=== PATIENT | female | born 1975 | race Caucasian/White ===

== ENCOUNTER 2024-02-12 08:58 | Inpatient (IN) | payer BC ==
[2024-02-12] MEDS ORDERED: ONDANSETRON 4 MG/2 ML VIAL ONE ×2 (09:54→16:20)
[2024-02-12] MEDS ORDERED: MORPHINE 4 MG/ML SYR ONE ×3 (09:54→16:20)
[2024-02-12] MEDS ORDERED: NA CHLORIDE 0.9% 2,000 ML ONE (09:55)
--- NOTE | 2024-02-12 10:07 | RAD REPORT ---
EXAM DESCRIPTION: RAD -Hand Left 3 View - 02/12/2024 9:55 am CLINICAL HISTORY: Left hand pain status post injury FINDINGS: No fracture or dislocation is seen.
[2024-02-12 10:21] LABS: Specific Gravity 1.026 (1.005-1.030); Urine Bilirubin NEGATIVE (Negative); Urine Blood 3+ (OVER) (Negative); Urine Clarity Extremely Turbid (Clear); Urine Color Orange (Yellow); Urine Glucose TRACE (Negative); Urine Ketones TRACE (Negative); Urine Nitrite NEGATIVE (Negative); Urine Protein 3+ (Negative); Urine Urobilinogen Normal (Normal); Urine pH 5.5 (5.0-7.0)
[2024-02-12 10:23] LABS: Sqamous Epithelial <5 /HPF (None Seen); Urine Bacteria >50 /HPF (<20); Urine Culture Reflex Order REFLEXED; Urine Microscopic Reflex YN ORDER UMIC; Urine Mucus 4+ /HPF (None Seen); Urine RBC >50 /HPF (None Seen); Urine WBC >50 /HPF (<5); Urine WBC Clump Many /HPF (None Seen); Urine Yeast (Budding) Few /HPF (None Seen)
[2024-02-12 11:11] LABS: Absolute Basophils 0.1 K/uL (0-0.5); Absolute Lymphocytes (CBC) 1.7 K/uL (0.7-4.9); Absolute Monocytes 2.1 K/uL (0.1-1.3); Absolute Neutrophil 11.8 K/uL (1.8-8.0); Basophils % 0.7 % (0-1.3); Eosinophils % 0.1 % (0-4.4); Hematocrit 44.8 % (36.0-45.0); Hemoglobin 14.3 g/dL (12.0-15.0); Lymphocytes % 10.6 % (15.3-44.8); MCH 28.4 pg (27.0-35.0); MCHC 31.8 g/dL (32.0-36.0); MCV 89.2 fL (80-100); MPV 7.8 fL (7.6-11.3); Monocytes % 13.5 % (3.3-12.3); Neutrophils % 75.1 % (41.7-73.7); Nucleated Red Blood Cells % 0.1 % (0-0); Platelets 477 thou/uL (152-406); RBC Red Blood Cell Count 5.02 M/uL (3.86-4.86); Red Cell Distribution Width 15.7 % (12.1-15.2)
[2024-02-12 11:28] LABS: Albumin 3.3 g/dL (3.4-5.0); Albumin/Globulin Ratio 0.7 (1.1-1.8); Bilirubin Total 0.5 mg/dL (0.2-1.0); Globulin 4.7 g/dL (2.3-3.5)
--- NOTE | 2024-02-12 11:49 | RAD REPORT ---
EXAM DESCRIPTION: CT - Abdomen Pelvis W Contrast - 02/12/2024 11:11 am CLINICAL HISTORY: Abdominal pain COMPARISON: none. TECHNIQUE: Computed axial tomography of the abdomen pelvis was obtained. 100 cc Isovue-300 was admin istered intravenously. Oral contrast was not requested which limits evaluation of bowel and appendix All CT scans are performed using dose optimization technique as appropriate and may include automated exposure control or mA/KV adjustment according to patient size. FINDINGS: Fatty liver. Cholecystectomy. Pneumobilia. Tiny low-density area within the right lobe of liver nonspecific Spleen, pancreas and adrenals unremarkable. 2 centimeter left renal cyst. Right ureteral stent in place. No hydronephrosis. Normal appendix. No evidence of diverticulitis Hysterectomy. No adnexal mass IMPRESSION: Pneumobilia. Fatty liver Right ureteral stent in place without hydronephrosis
[2024-02-12] MEDS ORDERED: NA CHLORIDE 0.9% 100 ML ONE (12:24)
[2024-02-12] MEDS ORDERED: CEFTRIAXONE 2000 MG/VIAL ONE (12:24)
--- NOTE | 2024-02-12 12:41 | EDPHYS ---
Physician Documentation [facility] Name: Sandy Treadwell Age: 48 yrs Sex: Female : 1975 Arrival Date: 02/12/2024 Time: 08:58 Bed 8 Private MD: ED Physician Tommy Black HPI: 02/11 10:16 This 48 yrs old Female presents to ER via Ambulatory with complaints of rt Vomiting/Diarrhea - x6days, Thumb Injury. 10:16 Patient has a history of lupus, chronic pancreatitis. Earlier this year, the patient rt had an infected ureteral stone with stenting, possibly incomplete lithotripsy. Patient has secondary stent that was placed, however, the urologist was not able to tell if he had gotten all of the stone out due to the clot burden. Scheduled to follow-up with urology in the clinic. She had been on antibiotics. Patient states that over the past 6 days she has had nausea, vomiting, diarrhea, generalized abdominal pain. Patient states that she has not been able to keep anything down by mouth. Patient injured her hand today when she was trying to reach for a vomit bucket when she bent her left thumb backwards. Reports pain to that area. States that she felt a pop. Denies other acute complaints at this time, symptoms are moderate in severity, no other aggravating or elevating factors.. Historical: - Allergies: 09:35 Codeine; ap3 09:35 Sulfa (Sulfonamide Antibiotics); ap3 09:35 ambien; ap3 - PMHx: 09:35 Lupus erythematosus; Hypertensive disorder; Rheumatoid arthritis; hashimotos; graves; ap3 - Immunization history:: Client reports receiving the 2nd dose of the Covid vaccine. - Infectious Disease History:: Denies. - Social history:: Smoking status: Patient denies any tobacco usage or history of. - Family history:: not pertinent. ROS: 10:16 Constitutional: Negative for fever, chills, and weight loss, Cardiovascular: Negative rt for chest pain, palpitations, and edema, Respiratory: Negative for shortness of breath, cough, wheezing, and pleuritic chest pain, Skin: Negative for injury, rash, and discoloration, Neuro: Negative for headache, weakness, numbness, tingling, and seizure, 10:16 Abdomen/GI: Positive for abdominal pain, nausea, vomiting, and diarrhea, 10:16 Back: Positive for flank pain, Negative for injury or acute deformity, 10:16 MS/extremity: Positive for pain, Negative for deformity, Exam: 10:16 Constitutional: This is a well developed, well nourished patient who is awake, alert, rt and in no acute distress. Head/Face: Normocephalic, atraumatic. Chest/axilla: Normal chest wall appearance and motion. Nontender with no deformity. No lesions are appreciated. Cardiovascular: Regular rate and rhythm with a normal S1 and S2. No gallops, murmurs, or rubs. Normal PMI, no JVD. No pulse deficits. Respiratory: Lungs have equal breath sounds bilaterally, clear to auscultation and percussion. No rales, rhonchi or wheezes noted. No increased work of breathing, no retractions or nasal flaring. Skin: Warm, dry with normal turgor. Normal color with no rashes, no lesions, and no evidence of cellulitis. Neuro: Awake and alert, GCS 15, oriented to person, place, time, and situation. Cranial nerves II-XII grossly intact. Motor strength 5/5 in all extremities. Sensory grossly intact. Cerebellar exam normal. Normal gait. 10:16 Abdomen/GI: Tenderness diffusely with no rebound, guarding, distention, 12:53 ECG was reviewed by the Attending Physician. rt Vital Signs: 09:32 BP 145 / 104; Pulse 103; Resp 17; Temp 98.1; Pulse Ox 99% ; Weight 131.54 kg; Height 5 ap3 ft. 3 in. ; Pain 7/10; 12:04 BP 164 / 103; Pulse 72; Resp 18; Pulse Ox 97% on R/A; iw 13:36 Pulse 80; Resp 19; Pulse Ox 98% on R/A; tm6 13:38 BP 120 / 68; tm6 15:15 BP 152 / 97; Pulse 91; Resp 19; Pulse Ox 94% on R/A; iw 18:00 BP 125 / 87; Pulse 75; Resp 18; Pulse Ox 95% on R/A; iw 09:32 Body Mass Index 51.37 (131.54 kg, 160.02 cm) ap3 09:32 Pain Scale: Adult ap3 MDM: 09:29 Patient medically screened. rt 15:03 Differential diagnosis: Pyelonephritis, ureteral stone, pancreatitis, dehydration. Data rt reviewed: vital signs, nurses notes, lab test result(s), EKG, radiologic studies. Consideration of Admission/Observation Patient was admitted/placed on observation. Management of patient was discussed with the following: Hospitalist: Discussed with Dr. Martinez, agrees to. Mmd Unit Teacher: Discussed with Dr. Stinson at [facility] urology. Attempted to arrange transfer. Dr. Stinson says there is no indications for urologic intervention states that patient does not need to be transferred. Declines transfer. I considered the following discharge prescriptions or medication management in the emergency department Medications were administered in the Emergency Department. See MAR. Independent interpretation of the following test(s) in the Emergency Department CT Scan: My interpretation is Visualized ureteral stent, no stones seen.. Care significantly affected by the following chronic conditions: Lupus, kidney stones, chronic pancreatitis. Post IV fluid administration reassessment for Sepsis: Sepsis focused reassessment complete. Focused assessment performed: February 12, 2024 at 14:00 Peripheral pulse evaluation performed. Radial Peripheral pulses noted to be 3+ normal. Skin examination performed. Skin noted to have normal turgor. Skin noted to be pink. Cardio: Cardiovascular exam improved from previous exam. Heart rate and blood pressure have improved. Respiratory: Clear to auscultation. Counseling: I had a detailed discussion with the patient and/or guardian regarding the historical points, exam findings, and any diagnostic results supporting the discharge/admit diagnosis, lab results, radiology results, the need for further work-up and treatment in the hospital. Response to treatment: the patient's symptoms have markedly improved after treatment. 02/11 09:43 Order name: CBC with Diff; Complete Time: 11:50 rt 02/11 09:43 Order name: CMP; Complete Time: 11:50 rt 02/11 09:43 Order name: Lipase; Complete Time: 11:50 rt 02/11 09:43 Order name: Urinalysis w/ reflexes; Complete Time: 10:40 rt 02/11 09:44 Order name: CDIFF rt 02/11 10:26 Order name: Urine Culture EDMS 02/11 12:16 Order name: Blood Culture Adult (2) rt 02/11 12:16 Order name: Lactate w/ 2H reflex if indic.; Complete Time: 15:08 rt 02/11 12:16 Order name: Protime (+inr); Complete Time: 15:08 rt 02/11 12:16 Order name: Ptt, Activated; Complete Time: 15:08 rt 02/11 16:07 Order name: CBC with Automated Diff EDMS 02/11 16:07 Order name: CBC with Automated Diff EDMS 02/11 16:07 Order name: Comprehensive Metabolic Panel EDMS 02/11 16:07 Order name: Comprehensive Metabolic Panel EDMS 02/11 17:06 Order name: Ghost Lactate-NO COLLECT Timer EDMS 02/11 09:43 Order name: Hand Left 3 View XRAY; Complete Time: 10:40 rt 02/11 10:00 Order name: CT Abd/Pelvis - IV Contrast Only; Complete Time: 11:50 rt 02/11 09:43 Order name: IV Saline Lock; Complete Time: 11:09 rt 02/11 09:43 Order name: Labs collected and sent; Complete Time: 11:09 rt 02/11 10:47 Order name: Labs - recollect needed: recollect blood/ hemolyzed per karen in the eb lab; Complete Time: 11:03 02/11 12:16 Order name: Accucheck; Complete Time: 12:19 rt 02/11 12:16 Order name: Cardiac monitoring; Complete Time: 12:33 rt 02/11 12:16 Order name: EKG - Nurse/Tech; Complete Time: 12:33 rt 02/11 12:16 Order name: IV Saline Lock - Large Bore; Complete Time: 12:33 rt 02/11 12:16 Order name: O2 Per Protocol; Complete Time: 12:19 rt 02/11 12:16 Order name: O2 Sat Monitoring; Complete Time: 12:19 rt 02/11 12:16 Order name: Vital Signs; Complete Time: 12:19 rt EC:53 Rate is 81 beats/min. Rhythm is regular, Normal Sinus Rhythm with Occasional PVCs. QRS rt [place] is Normal. [place] interval is normal. QRS interval is normal. QT interval is normal. No Q waves. Clinical impression: NSR w/ Non-specific ST/T Changes. Administered Medications: 11:03 Drug: Ondansetron IVP 8 mg IVP once; over 2 minutes Route: IVP; Site: right upper arm; iw 12:00 Follow up: Response: No adverse reaction iw 11:03 Drug: morphine IVP or IV 4 mg IVP once over 4 mins Route: IVP; Infused Over: 4 mins; iw Site: right forearm; 12:00 Follow up: Response: No adverse reaction; Pain is decreased iw 11:40 Drug: NS 0.9% IV 2000 ml IV at 1 bolus Per protocol; 1000 mL bolus Route: IV; Rate: 1 iw bolus; Site: left wrist; 15:00 Follow up: IV Status: Completed infusion iw 12:02 Drug: morphine IVP or IV 4 mg IVP once over 4 mins Route: IVP; Infused Over: 4 mins; iw Site: left wrist; 16:00 Follow up: Response: No adverse reaction; Pain is unchanged, physician notified iw 14:59 Drug: Rocephin - Rocephin (cefTRIAXone) IVPB 2 grams IVPB once over 30 mins; (mix in iw 100 mL NS) Route: IVPB; Infused Over: 30 mins; Site: left wrist; 15:30 Follow up: IV Status: Completed infusion iw 16:25 Drug: morphine IVP or IV 4 mg IVP once over 4 mins Route: IVP; Infused Over: 4 mins; iw Site: left wrist; 17:25 Follow up: Response: No adverse reaction; Pain is decreased iw 16:25 Drug: Ondansetron IVP 4 mg IVP once; over 2 minutes Route: IVP; Site: left wrist; iw 17:00 Follow up: Response: No adverse reaction iw 16:31 Drug: NS 0.9% IV 1000 ml IV at 1 bolus Per protocol; 1000 mL bolus Route: IV; Rate: 1 iw bolus; Site: left wrist; 17:35 Follow up: IV Status: Completed infusion iw Disposition Summary: 02/12/24 13:40 Hospitalization Ordered Notes: Hospitalization Status: Inpatient Admission rt Provider: Jihan Martinez rt Location: Telemetry/[facility] (Inpatient) rt Condition: Stable(02/12/24 13:40) rt Problem: new(02/12/24 13:40) rt Symptoms: have improved(02/12/24 13:40) rt Bed/Room Type: Standard rt Room Assignment: 401(02/12/24 16:15) eb Diagnosis - UTI/ Urinary tract infection, site not specified(02/12/24 13:40) rt - Sepsis, unspecified organism(02/12/24 13:40) rt Forms: - Medication Reconciliation Form rt - SBAR form rt - Leadership Thank You Letter rt Critical care time excluding procedures: 15:12 Critical care time: Bedside Care: 30 minutes, Consultation: 5 minutes. Total time: 35 rt minutes Signatures: Dispatcher [employer] EDMS Lilian Estrada, RN Gin Contreras RN RN ap3 Ruth Lau Ryan, MD MD rt Corrections: (The following items were deleted from the chart) 12:17 12:17 BLOOD CULTURE*+BA.LAB.BRZ ordered. EDMS EDMS 12:17 12:17 LACTATE+C.LAB.BRZ ordered. EDMS EDMS 12:17 12:17 PROTIME (+INR)+COAG.LAB.BRZ ordered. EDMS EDMS 12:17 12:17 PTT, ACTIVATED+COAG.LAB.BRZ ordered. EDMS EDMS 13:39 12:40 Dr. rt rt 13:39 12:40 [facility] rt rt 13:39 12:40 Private Physician at [facility] rt rt 13:39 12:40 Stable rt rt 13:39 12:40 new rt rt 13:39 12:40 have improved rt rt 13:39 12:40 UTI/ Urinary tract infection, site not specified rt rt 13:39 12:40 Sepsis, unspecified organism rt rt 16:15 13:40 rt eb
--- NOTE | 2024-02-12 12:41 | ER ---
Nurse's Notes [facility] Name: Sandy Treadwell Age: 48 yrs Sex: Female : 1975 Arrival Date: 02/12/2024 Time: 08:58 Bed 8 Private MD: Diagnosis: UTI/ Urinary tract infection, site not specified;Sepsis, unspecified organism Presentation: 02/11 09:32 Chief complaint: Patient states: she has been having nausea and vomiting for 6 days ap3 with a known kidney stone and stent placement. patient states she was reaching for her vomit bucket this morning when she fell and injured her left thumb. patient reports pain 7/10 to the left thumb. Coronavirus screen: At this time, the client does not indicate any symptoms associated with coronavirus-19. Ebola Screen: No symptoms or risks identified at this time. Initial Sepsis Screen: Does the patient meet any 2 criteria? No. Patient's initial sepsis screen is negative. Does the patient have a suspected source of infection? No. Patient's initial sepsis screen is negative. Risk Assessment: Do you want to hurt yourself or someone else? Patient reports no desire to harm self or others. Onset of symptoms is unknown. 09:32 Method Of Arrival: Ambulatory ap3 09:32 Acuity: GENE 3 ap3 Triage Assessment: 09:37 General: Appears in no apparent distress. Behavior is calm, cooperative, appropriate ap3 for age. Pain: Complains of pain in left thumb Pain currently is 7 out of 10 on a pain scale. Neuro: Level of Consciousness is awake, alert, obeys commands, Oriented to person, place, time, situation, Appropriate for age. Cardiovascular: Patient's skin is warm and dry. Respiratory: Airway is patent Respiratory effort is even, unlabored, Respiratory pattern is regular, symmetrical. GI: Reports nausea, vomiting. Historical: - Allergies: 09:35 Codeine; ap3 09:35 Sulfa (Sulfonamide Antibiotics); ap3 09:35 ambien; ap3 - PMHx: 09:35 Lupus erythematosus; Hypertensive disorder; Rheumatoid arthritis; hashimotos; graves; ap3 - Immunization history:: Client reports receiving the 2nd dose of the Covid vaccine. - Infectious Disease History:: Denies. - Social history:: Smoking status: Patient denies any tobacco usage or history of. - Family history:: not pertinent. Screenin:37 [facility] ED Fall Risk Assessment (Adult) History of falling in the last 3 months, ap3 including since admission Yes- fall prone (multiple falls) (3 pts) Confusion or Disorientation No (0 pts) Intoxicated or Sedated No (0 pts) Impaired Gait No (0 pts) Mobility Assist Device Used No (0 pt) Altered Elimination No (0 pt) Score/Fall Risk Level 3 or more points = High Risk Oriented to surroundings, Maintained a safe environment, Educated pt \T\ family on fall prevention, incl call for assistance when getting out of bed, Assessed \T\ reinforced patient's understanding of fall precautions, Provided non-skid footwear, Hourly rounding (assess needs \T\ fall precautionary measures) done, Used ambulatory aids as needed (educated on \T\ assisted with), Used gait belt as appropriate Implemented a Fall Risk Plan of Care, Apply high fall risk patient identification: yellow non skid footwear/ fall signage, Placed fall mat w/ non beveled edge next to bed, Remained w/in arm's length of patient and in sight while toileting, Offered frequent toileting (1:1 observation), Remained with patient while ambulating, Utilized family, sitter, or virtual machine straw hat presser as indicated. Abuse screen: Denies threats or abuse. Tuberculosis screening: No symptoms or risk factors identified. 18:00 Nutritional screening: No deficits noted. iw Assessment: 09:30 General: Appears in no apparent distress. uncomfortable, Behavior is calm, cooperative. iw Pain: Complains of pain in left hand and left thumb. Neuro: Level of Consciousness is awake, alert, obeys commands, Oriented to person, place, time, situation, Moves all extremities. Full function. Cardiovascular: Patient's skin is warm and dry. GI: Abdomen is non-distended, Reports diarrhea, intolerance of fluids, intolerance of food, nausea, vomiting. Derm: Skin is intact, is fragile, Skin is pale. Musculoskeletal: Range of motion: intact in all extremities. 12:03 Reassessment: Patient appears in no apparent distress at this time. Patient and/or iw family updated on plan of care and expected duration. Pain level reassessed. Patient is alert, oriented x 3, equal unlabored respirations, skin warm/dry/pink. requesting juice Patient states feeling better. 13:36 Reassessment: Patient appears in no apparent distress at this time. No changes from tm6 previously documented assessment. 15:10 Reassessment: Patient appears in no apparent distress at this time. Patient and/or iw family updated on plan of care and expected duration. Pain level reassessed. pt requesting pain/nausea meds before going upstairs. 17:45 Reassessment: IV access lost, attempting to access port a cath. tm6 18:20 Reassessment: port a cath accessed, unable to draw blood for lactate sepsis , Dr. Martinez iw notified. Vital Signs: 09:32 BP 145 / 104; Pulse 103; Resp 17; Temp 98.1; Pulse Ox 99% ; Weight 131.54 kg; Height 5 ap3 ft. 3 in. ; Pain 7/10; 12:04 BP 164 / 103; Pulse 72; Resp 18; Pulse Ox 97% on R/A; iw 13:36 Pulse 80; Resp 19; Pulse Ox 98% on R/A; tm6 13:38 BP 120 / 68; tm6 15:15 BP 152 / 97; Pulse 91; Resp 19; Pulse Ox 94% on R/A; iw 18:00 BP 125 / 87; Pulse 75; Resp 18; Pulse Ox 95% on R/A; iw 09:32 Body Mass Index 51.37 (131.54 kg, 160.02 cm) ap3 09:32 Pain Scale: Adult ap3 ED Course: 09:01 Patient arrived in ED. ra3 09:14 Tommy Black MD is Attending Physician. rt 09:20 Lilian Estrada, RN is Primary Nurse. iw 09:35 Triage completed. ap3 09:38 Arm band placed on right wrist. ap3 09:38 Patient has correct armband on for positive identification. Fall risk band placed. Bed ap3 in low position. Call light in reach. Adult w/ patient. Pulse ox on. NIBP on. 09:56 Hand Left 3 View XRAY In Process Unspecified. EDMS 10:29 Initial lab(s) drawn, by me, sent to lab. zm 10:45 Inserted saline lock: 22 gauge in right forearm, using aseptic technique. Flushed with zm 10 mL NS. 11:04 Lab(s) recollected, by me, sent to lab. zm 11:09 Lipase Sent. zm 11:09 CMP Sent. zm 11:09 CBC with Diff Sent. zm 11:12 CT Abd/Pelvis - IV Contrast Only In Process Unspecified. EDMS 11:15 Inserted saline lock: 24 gauge in left wrist, using aseptic technique. Blood collected. iw IV inserted by community development technician. 12:24 transfer initiated by Juan with [facility] from the [facility]/ song patient requests going to [facility]. 12:32 EKG done, by ED staff, reviewed by Tommy Black MD. tm6 13:[address] Rao Stinson the urologist operational trainer for [facility] with Dr. song Black for patient transfer consultation. 13:39 Jihan Martinez MD is Hospitalizing Provider. rt 15:05 Notified ED physician of a critical lab result(s). lactate 3.7. ap3 15:30 1404 CM attempted initial assessment, phlebotomy at bedside attempting venipuncture. ane 1416 CM attempted initial assessment, phlebotomy at bedside performing venipuncture. 1530 CM met with patient at the bedside in the ED exam room. Patient identified by name and . Demographic sheet confirmed. reports she lives alone in a first floor apartment. reports prior to admission, she performs ADLs independently however has had increasing difficulty showering on her own. She expressed the need to hire a private caregiver to assist with ADLs and general housekeeping and chores. Although 's residence eis in [place], [place], a list of private pay caregivers was provided to patient. Patient reports having many prior hospitalizations since her diagnosis of lupus. DME in her household includes, a walker, cane, shower chair, electric scooter, BP cuff, pulse oximeter as well as an [employer] portable oxygen concentrator, that she uses PRN up to 3 L. Patient reports a hx of HH although does not recall the name of the company as it was when she resided in [place]. Patient asked about HH options in the area should she be prescribed HH. CM provided HH list and recommended patient speak with hospitalist. No MPOA in place at this time. 's preferred discharge plan is to return home, with a hired caregiver to assist with ADLs. CM team will continue to follow and coordinate care. 18:30 No provider procedures requiring assistance completed. iw 18:37 Accessed Port-a-Cath. using accessed w/ # 20 Evans needle, ,sterile technique, per iw hospital protocol. Clean \T\ dry. Dressing intact. No blood return. Flushes easily. 18:37 Patient admitted, IV remains in place. iw Administered Medications: 11:03 Drug: Ondansetron IVP 8 mg IVP once; over 2 minutes Route: IVP; Site: right upper arm; iw 12:00 Follow up: Response: No adverse reaction iw 11:03 Drug: morphine IVP or IV 4 mg IVP once over 4 mins Route: IVP; Infused Over: 4 mins; iw Site: right forearm; 12:00 Follow up: Response: No adverse reaction; Pain is decreased iw 11:40 Drug: NS 0.9% IV 2000 ml IV at 1 bolus Per protocol; 1000 mL bolus Route: IV; Rate: 1 iw bolus; Site: left wrist; 15:00 Follow up: IV Status: Completed infusion iw 12:02 Drug: morphine IVP or IV 4 mg IVP once over 4 mins Route: IVP; Infused Over: 4 mins; iw Site: left wrist; 16:00 Follow up: Response: No adverse reaction; Pain is unchanged, physician notified iw 14:59 Drug: Rocephin - Rocephin (cefTRIAXone) IVPB 2 grams IVPB once over 30 mins; (mix in iw 100 mL NS) Route: IVPB; Infused Over: 30 mins; Site: left wrist; 15:30 Follow up: IV Status: Completed infusion iw 16:25 Drug: morphine IVP or IV 4 mg IVP once over 4 mins Route: IVP; Infused Over: 4 mins; iw Site: left wrist; 17:25 Follow up: Response: No adverse reaction; Pain is decreased iw 16:25 Drug: Ondansetron IVP 4 mg IVP once; over 2 minutes Route: IVP; Site: left wrist; iw 17:00 Follow up: Response: No adverse reaction iw 16:31 Drug: NS 0.9% IV 1000 ml IV at 1 bolus Per protocol; 1000 mL bolus Route: IV; Rate: 1 iw bolus; Site: left wrist; 17:35 Follow up: IV Status: Completed infusion iw Medication: 18:00 VIS not applicable for this client. iw Outcome: 12:40 ER care complete, transfer ordered by MD. rt 13:40 Decision to Hospitalize by Provider. rt 18:30 Admitted to Med/surg accompanied by tech, via wheelchair, with chart, Report called to sivakumar wilks RN 18:30 Condition: good 18:30 Discharge instructions given to patient, family, Instructed on the need for admit, Demonstrated understanding of instructions, 18:38 Patient left the ED. iw Signatures: Dispatcher [employer] EDLilian Santamaria, VITO RN Gin Tan RN RN ap3 Ruth Lau Zaina zm [place], Ryan, MD MD rt Usha Larsen RN RN tm6 Fatoumata Clemente ra3 Leta Thurston RN RN ane Corrections: (The following items were deleted from the chart) 12:08 12:04 Pulse 72bpm; Resp 18bpm; Pulse Ox 97% RA; iw 13:54 13:13 connected the urologist operational trainer for [facility] with Dr. Black for eb patient transfer consultation. eb
[2024-02-12 14:49] LABS: PT Prothrombin Time 12.8 SECONDS (9.4-12.5); PTT, Activated Partial Thromb 26.8 SECONDS (24.3-36.9); Protime INR 1.15
[2024-02-12] MEDS ORDERED: ACETAMINOPHEN 500 MG TAB PO PRN (16:01)
--- NOTE | 2024-02-12 16:11 | P.HP ---
Certification for Inpatient Patient admitted to: Inpatient With expected LOS: >2 Midnights Patient will require the following post-hospital care: None Practitioner: I am a practitioner with admitting privileges, knowledge of patient current condition, hospital course, and medical plan of care. Services: Services provided to patient in accordance with Admission requirements found in Title 42 Section 412.3 of the Code of Federal Regulations Patient History Date of Service: 02/12/24 Reason for admission: UTI with sepsis History of Present Illness: Patient is a very pleasant 48-year-old female who presents to the emergency room with persistent nausea vomiting and diarrhea. Has been going on for the last 6 days. She is also had an injury to her finger that she wanted evaluated. In the ER she was given IV fluids and she had lab workup which revealed a significant urinary tract infection. Patient had a renal stent placed and a lithotripsy done recently. She has noted to have some dysuria since that time. She is also been on IV antibiotics as well as oral antibiotics. She has a history of systemic lupus erythematous which is affecting multiple organs. Patient is on IgG and oral prednisone. She recently moved here from the [facility]. Patient will be admitted to the hospital for treatment of her UTI with sepsis. Allergies codeine Allergy (Verified 02/12/24 15:07) Hives/Rash - Past Medical/Surgical History -: SLE -: Nephrolithiasis -: Hypertension -: J stent -: Lithotripsy -: Colonoscopy - Family History Father Family History: Reviewed- Non-Contributory - Social History Smoking Status: Never smoker Alcohol use: No CD- Drugs: No Review of Systems 10-point ROS is otherwise unremarkable Physical Examination - Vital Signs Temperature: 98 F Blood Pressure: 107/60 Pulse: 110 Respirations: 24 Pulse Ox (%): 95 - Physical Exam General: Alert, In no apparent distress, Oriented x3 HEENT: Atraumatic, PERRLA, Mucous membr. moist/pink, EOMI, Sclerae nonicteric Neck: Supple, 2+ carotid pulse no bruit, No LAD, Without JVD or thyroid abnormality Respiratory: Clear to auscultation bilaterally, Normal air movement Cardiovascular: Regular rate/rhythm, Normal S1 S2 Gastrointestinal: Normal bowel sounds, Soft and benign, Non-distended, No tenderness Musculoskeletal: No clubbing, No swelling, No tenderness Integumentary: No rashes Neurological: Normal speech, Normal tone, Sensation intact, Cranial nerves 3-12 intact, Normal affect, Abnormal gait, Abnormal strength Lymphatics: No axilla or inguinal lymphadenopathy - Studies Laboratory Data (last 24 hrs) 02/12/24 02/12/24 02/12/24 14:19 11:04 11:04 WBC 15.70 H Hgb 14.3 Hct 44.8 Plt Count 477 H PT 12.8 H INR 1.15 APTT 26.8 Sodium 141 Potassium 3.0 L BUN 10 Creatinine 1.02 Glucose 130 H Total Bilirubin 0.5 AST 32 ALT 38 Alkaline Phosphatase 97 Lipase 25 Assessment & Plan - Problems (Diagnosis) (1) Intractable nausea and vomiting Current Visit: Yes Status: Acute (2) Diarrhea Current Visit: Yes Status: Acute (3) SLE (systemic lupus erythematosus related syndrome) Current Visit: Yes Status: Acute (4) Sepsis secondary to UTI Current Visit: Yes Status: Acute (5) History of lithotripsy Current Visit: Yes Status: Acute (6) S/P ureteral stent placement Current Visit: Yes Status: Acute (7) History of hypertension Current Visit: Yes Status: Acute (8) Lactic acidosis Current Visit: Yes Status: Acute - Plan Plan: 1. Patient with UTI with sepsis and lactic acidosis; continue with IV antibiotics and IV fluids. Await for urine culture results. Monitor white blood cell count. Current white blood cell is greater than 15,000. Heart rate is 110s. Patient meets criteria for sepsis. Cultures pending at this time. Lactic acid is elevated at greater than 3. Patient with lactic acidosis. Aggressive IV hydration IV antibiotic therapy. 2. History of nausea vomiting and diarrhea; continue with antiemetics and stool studies. Risk of C. difficile at this time. C. difficile pending. 3. History of hypertension; continue with antihypertensive 4. Hypokalemia; supplement 5. GI DVT prophylaxis Discharge Plan: Home Plan to discharge in: Greater than 2 days - Advance Directives Does patient have a Living Will: No Does patient have a Durable POA for Healthcare: No - Code Status/Comfort Care Code Status Assessed: Yes Code Status: Full Code Critical Care: Yes Time Spent Managing PTS Care (In Minutes): 45
[2024-02-12] MEDS: NA CHLORIDE 0.9% 1,000 ML IV SCH (17:00)
[2024-02-12] MEDS: MORPHINE 2 MG/ML SYR IV PRN (20:30)
[2024-02-12] MEDS: CEFTRIAXONE 1,000 MG in NA CHLORIDE 0.9% 50 ML IVPB SCH (20:30)
[2024-02-12] MEDS: KCL 20 MEQ/100 mL IVPB 20 MEQ/100 ML BAG IV SCH (20:30)
[2024-02-12] MEDS: METOCLOPRAMIDE 10 MG/2mL INJ IV ONE (22:08)
[2024-02-12 22:37] VITALS: BMI 51.3
[2024-02-13] MEDS: ONDANSETRON 4 MG/2 ML VIAL IV PRN (00:59)
[2024-02-13 06:38] LABS: Absolute Basophils 0.1 K/uL (0-0.5); Absolute Eosinophils 0.1 K/uL (0-0.5); Absolute Lymphocytes (CBC) 1.9 K/uL (0.7-4.9); Absolute Monocytes 1.8 K/uL (0.1-1.3); Absolute Neutrophil 7.1 K/uL (1.8-8.0); Eosinophils % 0.9 % (0-4.4); Hematocrit 37.5 % (36.0-45.0); Hemoglobin 11.6 g/dL (12.0-15.0); Lymphocytes % 17.3 % (15.3-44.8); MCH 27.7 pg (27.0-35.0); MCHC 30.8 g/dL (32.0-36.0); MPV 7.8 fL (7.6-11.3); Monocytes % 16.2 % (3.3-12.3); Neutrophils % 64.6 % (41.7-73.7); Nucleated Red Blood Cells % 0.1 % (0-0); Platelets 376 thou/uL (152-406); RBC Red Blood Cell Count 4.17 M/uL (3.86-4.86); Red Cell Distribution Width 15.9 % (12.1-15.2)
--- NOTE | 2024-02-13 06:54 | P.PN ---
Date of Service: 02/13/24 Subjective She reports being in pain, will add as needed analgesics, Reports some improvement, reports nausea, tolerating clear liquids this morning, No reported bowel movement this morning Review of Systems 10-point ROS is otherwise unremarkable Physical Examination - Vital Signs Reviewed - Physical Exam General: Alert, In no apparent distress, Oriented x3 HEENT: Atraumatic, PERRLA, Mucous membr. moist/pink, EOMI, Sclerae nonicteric Neck: Supple, 2+ carotid pulse no bruit, No LAD, Without JVD or thyroid abnormality Respiratory: Clear to auscultation bilaterally, Normal air movement Cardiovascular: Regular rate/rhythm, Normal S1 S2 Gastrointestinal: Normal bowel sounds, Soft and benign, Non-distended, No tenderness Musculoskeletal: No clubbing, No swelling, No tenderness Integumentary: No rashes Neurological: Normal speech, Normal tone, Sensation intact, Cranial nerves 3-12 intact, Normal affect, Abnormal gait, Abnormal strength Lymphatics: No axilla or inguinal lymphadenopathy Assessment & Plan - Problems (Diagnosis) (1) Intractable nausea and vomiting Current Visit: Yes Status: Acute (2) Diarrhea Current Visit: Yes Status: Acute (3) SLE (systemic lupus erythematosus related syndrome) Current Visit: Yes Status: Acute (4) Sepsis secondary to UTI Current Visit: Yes Status: Acute (5) History of lithotripsy Current Visit: Yes Status: Acute (6) S/P ureteral stent placement Current Visit: Yes Status: Acute (7) History of hypertension Current Visit: Yes Status: Acute (8) Lactic acidosis Current Visit: Yes Status: Acute - Plan Plan: 1. Patient with UTI with sepsis and lactic acidosis; continue with IV antibiotics and IV fluids. Await for urine culture results. Monitor white blood cell count. Current white blood cell is greater than 15,000. Heart rate is 110s. Patient meets criteria for sepsis. Cultures pending at this time. Lactic acid is elevated at greater than 3. Patient with lactic acidosis. Aggressive IV hydration IV antibiotic therapy. 2. History of nausea vomiting and diarrhea; continue with antiemetics and stool studies. Risk of C. difficile at this time. C. difficile pending. 3. History of hypertension; continue with antihypertensive 4. Hypokalemia; supplement 5. GI DVT prophylaxis Discharge Plan: Home Plan to discharge in: Greater than 2 days - Advance Directives Does patient have a Living Will: No Does patient have a Durable POA for Healthcare: No - Code Status/Comfort Care Code Status Assessed: Yes Code Status: Full Code Critical Care: Yes Time Spent Managing PTS Care (In Minutes): 30 <Carrie Dale - Last Filed: 02/13/24 15:08> Patient was seen and examined. Events of the last 24 hours have been noted. Spoke with with FRANCES regarding patient's clinical picture after evaluating and examining the patient independently. I performed a substantial part of the MDM during this patient's care today. I personally made or approved the documented management plan and acknowledge its risk of complications. I agree with the findings and documentation provided in the FRANCES's notes. Patient with a history of SLE. Continue with immunosuppressants. Continue with steroid use. Continue with antibiotics pending cultures. Patient's lactic acidosis has improved. Clinically patient still having some nausea and vomiting and diarrhea and a lot of these are chronic findings. No nausea and vomiting today. No diarrhea. C. difficile was negative. Urine cultures pending. Continue with IV antibiotic therapy. Patient with multiple hospitalization for her SLE. Recently moved here from [place]. Has been at [facility] for stent placement and lithotripsy; urology did not accept patient back for transfer. Will continue with antibiotic therapy and arrange for discharge once we get culture results with outpatient follow-up. <Jihan Martinez - Last Filed: 02/14/24 19:32>
--- NOTE | 2024-02-13 06:56 | P.DS ---
Admission Date: 02/12/24 Discharge Date: 02/13/24 Disposition: ROUTINE DISCHARGE Discharge Condition: GOOD Reason for Admission: UTI with sepsis Brief History of Present Illness: Patient is a very pleasant 48-year-old female who presents to the emergency room with persistent nausea vomiting and diarrhea. Has been going on for the last 6 days. She is also had an injury to her finger that she wanted evaluated. In the ER she was given IV fluids and she had lab workup which revealed a significant urinary tract infection. Patient had a renal stent placed and a lithotripsy done recently. She has noted to have some dysuria since that time. She is also been on IV antibiotics as well as oral antibiotics. She has a history of systemic lupus erythematous which is affecting multiple organs. Patient is on IgG and oral prednisone. She recently moved here from the [facility]. Patient will be admitted to the hospital for treatment of her UTI with sepsis. - Physical Exam General: Alert, In no apparent distress, Oriented x3 HEENT: Atraumatic, PERRLA, Mucous membr. moist/pink, EOMI, Sclerae nonicteric Neck: Supple, 2+ carotid pulse no bruit, No LAD, Without JVD or thyroid abnormality Respiratory: Clear to auscultation bilaterally, Normal air movement Cardiovascular: Regular rate/rhythm, Normal S1 S2 Gastrointestinal: Normal bowel sounds, Soft and benign, Non-distended, No tenderness Musculoskeletal: No clubbing, No swelling, No tenderness Integumentary: No rashes Neurological: Normal speech, Normal tone, Sensation intact, Cranial nerves 3-12 intact, Normal affect, Abnormal gait, Abnormal strength Lymphatics: No axilla or inguinal lymphadenopathy Hospital Course: 48-year-old female who presents to the emergency room with persistent nausea vomiting and diarrhea. Has been going on for the last 6 days. She is also had an injury to her finger that she wanted evaluated. In the ER she was given IV fluids and she had lab workup which revealed a significant urinary tract infection. Patient had a renal stent placed and a lithotripsy done recently. She has noted to have some dysuria since that time. Continue home medicines as previously prescribed GOAL: Clear understanding of disease process INSTRUCTIONS: Physician Discharge Instructions: -Follow-up with PCP in 1 to 2 weeks -Please call Dr. Martinez at [phone] if any questions regarding hospital stay -Please call nursing station at [phone] if any nursing or medication questions -Return to the emergency room if symptoms worsen Diet: ADA, low sodium Activity: Fall precautions Vital Signs/Physical Exam: Temp Pulse Resp BP Pulse Ox 97.1 F 83 18 138/86 93 02/13/24 04:00 02/13/24 04:00 02/13/24 06:00 02/13/24 04:00 02/13/24 06:00 Laboratory Data at Discharge: WBC 11.00 thou/uL (4.3-10.9) H 02/13/24 05:42 Hgb 11.6 g/dL (12.0-15.0) L D 02/13/24 05:42 Hct 37.5 % (36.0-45.0) 02/13/24 05:42 Plt Count 376 thou/uL (152-406) 02/13/24 05:42 PT 12.8 SECONDS (9.4-12.5) H 02/12/24 14:19 INR 1.15 02/12/24 14:19 APTT 26.8 SECONDS (24.3-36.9) 02/12/24 14:19 Sodium 141 mEq/L (136-145) 02/12/24 11:04 Potassium 3.0 mEq/L (3.5-5.1) L 02/12/24 11:04 BUN 10 mg/dL (7-18) 02/12/24 11:04 Creatinine 1.02 mg/dL (0.55-1.02) 02/12/24 11:04 Glucose 130 mg/dL (74-106) H 02/12/24 11:04 Total Bilirubin 0.5 mg/dL (0.2-1.0) 02/12/24 11:04 AST 32 U/L (15-37) 02/12/24 11:04 ALT 38 U/L (13-56) 02/12/24 11:04 Alkaline Phosphatase 97 U/L (45-117) 02/12/24 11:04 Lipase 25 U/L (13-75) 02/12/24 11:04 Home Medications: Apixaban [Eliquis] 5 mg PO BID 02/13/24 Eletriptan HBr 40 mg PO DAILY PRN 02/13/24 Famotidine 1 tab PO DAILY 02/13/24 Omeprazole [Prilosec] 40 mg PO DAILY 02/13/24 Oxybutynin Chloride [Oxybutynin Chloride ER] 5 mg PO TID PRN 02/13/24 Promethazine HCl 25 mg PO Q12H PRN 02/13/24 Propranolol [Inderal LA*] 1 tab PO BID 02/13/24 dexAMETHasone [Dexamethasone] 2 mg PO DAILY 02/13/24 Followup: ROSALIE WIGGINS [Primary Care Provider] -
[2024-02-13 07:01] LABS: Albumin 2.8 g/dL (3.4-5.0); Albumin/Globulin Ratio 0.8 (1.1-1.8); Anion Gap 7.1 mEq/L (5.0-15.0); Bilirubin Total 0.3 mg/dL (0.2-1.0); Globulin 3.6 g/dL (2.3-3.5); Potassium 3.1 mEq/L (3.5-5.1); Protein, Total 6.4 g/dL (6.4-8.2)
[2024-02-13] MEDS: POTASSIUM 25 MEQ EFFERV TAB PO ONE (08:46)
[2024-02-13] MEDS: HYDROMORPHONE HCL 1 MG/ML INJ IV ONE (09:30)
[2024-02-13] MEDS ORDERED: OXYBUTYNIN ER 5 MG TAB PO PRN (12:52)
[2024-02-13] MEDS ORDERED: ELETRIPTAN HBR 40 MG PO PRN (12:52)
[2024-02-13] MEDS: HYDROMORPHONE HCL 0.5 MG/0.5 ML INJ IV PRN (13:25)
[2024-02-13] MEDS: DIPHENHYDRAMINE 50 MG/ML VIAL IV PRN (13:26)
--- NOTE | 2024-02-13 13:55 | EKG ---
Test Date: 2024-02-12 Test Time: 12:25:58 Speech Instructor: MARGIE MEASUREMENT RESULTS: Intervals: Rate: 81 PA: 126 QRSD: 84 QT: 438 QTc: 508 [place]: P: 7 PA: 126 QRS: 1 T: -16 INTERPRETIVE STATEMENTS: Sinus rhythm with premature supraventricular complexes Voltage criteria for left ventricular hypertrophy ST & T wave abnormality, consider anterior ischemia Prolonged QT Abnormal ECG No previous ECG available for comparison Electronically Signed On 02-13-24 13:54:11 CDT by Bo Soriano
[2024-02-13 14:36] LABS: STOOL CONSISTENCY Liquid/Semi-Solid
[2024-02-13 14:37] LABS: C.diff Antigen/Toxin Ag neg : Tox neg (NEG : NEG); CDIFF INTERNAL NEG CONTROL White Background (WHITE BKGD)
[2024-02-13] MEDS: POTASSIUM CL SA 10 MEQ TAB PO ONE (18:45)
[2024-02-13] MEDS: PROPRANOLOL HCL 80 MG SA CAP PO SCH (21:55)
[2024-02-13] MEDS: PHENAZOPYRIDINE 100MG TAB PO ONE (21:55)
[2024-02-13] MEDS: APIXABAN 5 MG TABLET PO SCH (21:56)
[2024-02-13] MEDS: PROMETHAZINE 25 MG TABLET PO PRN (21:56)
[2024-02-13] MEDS: HYDROCORTISONE SUC 100 MG INJ IV SCH (21:56)
[2024-02-14] MEDS: HOME MED 1 EA UNK (Famotidine [Famotidine] 40 MG Tablet) PO SCH (08:58)
[2024-02-14] MEDS: HOME MED 1 EA UNK (Omeprazole [Prilosec] 40 MG Capsule.Dr) PO SCH (08:58)
[2024-02-14] MEDS: DEXAMETHASONE 2 MG PO SCH (08:58)
[2024-02-14 10:11] LABS: Albumin 2.7 g/dL (3.4-5.0); Albumin/Globulin Ratio 0.7 (1.1-1.8); Anion Gap 7.6 mEq/L (5.0-15.0); Bilirubin Total 0.2 mg/dL (0.2-1.0); C-Reactive Protein 19.5 mg/L (<3.00); Globulin 3.7 g/dL (2.3-3.5); Protein, Total 6.4 g/dL (6.4-8.2)
[2024-02-14 10:13] LABS: Potassium 3.6 mEq/L (3.5-5.1)
[2024-02-14 11:08] LABS: Absolute Basophils 0.1 K/uL (0-0.5); Absolute Eosinophils 0.1 K/uL (0-0.5); Absolute Lymphocytes (CBC) 1.2 K/uL (0.7-4.9); Absolute Monocytes 1.2 K/uL (0.1-1.3); Absolute Neutrophil 8.4 K/uL (1.8-8.0); Basophils % 1.3 % (0-1.3); Eosinophils % 1.3 % (0-4.4); Hematocrit 38.4 % (36.0-45.0); Hemoglobin 11.9 g/dL (12.0-15.0); Lymphocytes % 11.1 % (15.3-44.8); MCH 27.9 pg (27.0-35.0); MPV 7.6 fL (7.6-11.3); Monocytes % 10.8 % (3.3-12.3); Neutrophils % 75.5 % (41.7-73.7); Nucleated Red Blood Cells % 0.1 % (0-0); Platelets 397 thou/uL (152-406); RBC Red Blood Cell Count 4.27 M/uL (3.86-4.86); Red Cell Distribution Width 16.2 % (12.1-15.2)
[2024-02-14] MEDS: POTASSIUM 25 MEQ EFFERV TAB PO ONE (13:23)
[2024-02-14] MEDS: NA CHLORIDE 0.9% 1,000 ML IV SCH (14:22)
[2024-02-14] MEDS ORDERED: LINEZOLID 600 MG IVPB 600 MG/300 ML BAG IV ONE (17:10)
[2024-02-14] MEDS: LINEZOLID 600 MG IVPB 600 MG/300 ML BAG IV SCH (17:20)
--- NOTE | 2024-02-14 19:50 | P.PN ---
Date of Service: 02/14/24 Subjective Patient is clinically doing much better. Patient denies any new complaints. Still with some nausea but no vomiting this morning. Ate some sausage in the morning. Diarrhea has improved. Patient with recent J stent by urology and [facility]. However, we tried to transfer from the ER but they refused transfer. Currently patient with VRE in the urine. Continue with Zyvox therapy. Arrange for discharge if patient tolerates diet in a.m. with outpatient follow-up with urology as scheduled. Physical Examination - Vital Signs Reviewed - Physical Exam General: Alert, In no apparent distress, Oriented x3 Respiratory: Clear to auscultation bilaterally, Normal air movement Cardiovascular: Regular rate/rhythm, Normal S1 S2 Gastrointestinal: Normal bowel sounds, Soft and benign, Non-distended, No tenderness Musculoskeletal: No clubbing, No swelling, No tenderness Neurological: Generalized weakness with no focal deficits Assessment & Plan - Problems (Diagnosis) (1) Intractable nausea and vomiting Current Visit: Yes Status: Acute (2) Diarrhea Current Visit: Yes Status: Acute (3) SLE (systemic lupus erythematosus related syndrome) Current Visit: Yes Status: Acute (4) Sepsis secondary to UTI with VRE Current Visit: Yes Status: Acute (5) History of lithotripsy Current Visit: Yes Status: Acute (6) S/P ureteral stent placement Current Visit: Yes Status: Acute (7) History of hypertension Current Visit: Yes Status: Acute (8) Lactic acidosis Current Visit: Yes Status: Acute - Plan Continue with plan of care as mentioned below: 1. Patient with UTI with sepsis and lactic acidosis; continue with IV antibiotics and IV fluids. Urine culture positive for VRE. Lactic acid is back to baseline. Continue with gentle hydration. 2. History of nausea vomiting and diarrhea; continue with antiemetics and stool studies. C. difficile is negative 3. History of hypertension; continue with antihypertensive 4. Hypokalemia; supplement 5. GI DVT prophylaxis Discharge Plan: Home Plan to discharge in: Greater than 2 days - Advance Directives Does patient have a Living Will: No Does patient have a Durable POA for Healthcare: No - Code Status/Comfort Care Code Status Assessed: Yes Code Status: Full Code Critical Care: no Time Spent Managing PTS Care (In Minutes): 25 Patient was seen and examined. Events of the last 24 hours have been noted. Spoke with with FRANCSE regarding patient's clinical picture after evaluating and examining the patient independently. I performed a substantial part of the MDM during this patient's care today. I personally made or approved the documented management plan and acknowledge its risk of complications. I agree with the findings and documentation provided in the FRANCES's notes. Patient with a history of SLE. Continue with immunosuppressants. Continue with steroid use. Continue with antibiotics pending cultures. Patient's lactic acidosis has improved. Clinically patient still having some nausea and vomiting and diarrhea and a lot of these are chronic findings. No nausea and vomiting today. No diarrhea. C. difficile was negative. Urine cultures pending. Continue with IV antibiotic therapy. Patient with multiple hospitalization for her SLE. Recently moved here from [place]. Has been at [facility] for stent placement and lithotripsy; urology did not accept patient back for transfer. Will continue with antibiotic therapy and arrange for discharge once we get culture results with outpatient follow-up.
[2024-02-14] MEDS: LINEZOLID 600 MG TAB PO SCH (20:51)
[2024-02-15] MEDS: Meropenem 1,000 MG in NA CHLORIDE 0.9% 100 ML IV SCH ×2 (08:35→16:03)
--- NOTE | 2024-02-15 12:43 | P.PN ---
Subjective Date of Service: 02/15/24 Chief Complaint: UTI with sepsis Pt is resting comfortably in bed. She is getting iv merrem for UTI. Urine cx is growing ESBL E. coli and E. faecalis. No other complaints. Review of Systems General: Unremarkable Eyes: Unremarkable ENT: Unremarkable Respiratory: Unremarkable Cardiovascular: Unremarkable Gastrointestinal: Unremarkable Genitourinary: Unremarkable Musculoskeletal: Unremarkable Integumentary: Unremarkable Neurological: Unremarkable Lymphatics: Unremarkable Physical Examination - Vital Signs Temperature: 96.9 F Blood Pressure: 131/79 Pulse: 80 Respirations: 16 Pulse Ox (%): 92 - Physical Exam General: Alert, In no apparent distress, Oriented x3, Obese HEENT: Atraumatic, Normocephalic, PERRLA Neck: Supple, 2+ carotid pulse no bruit Respiratory: Clear to auscultation bilaterally, Normal air movement Cardiovascular: No edema, Normal pulses, Regular rate/rhythm, Normal S1 S2 Capillary refill: <2 Seconds Gastrointestinal: Normal bowel sounds, Soft and benign, Non-distended Musculoskeletal: No clubbing, No swelling, No contractures Integumentary: No rashes, No breakdown, No significant lesion Neurological: Normal gait, Normal speech, Normal strength at 5/5 x4 extr Lymphatics: No axilla or inguinal lymphadenopathy - Studies Microbiology Data (last 24 hrs): 02/12/24 10:10 Clean Catch Urine [place] Count - Final >100,000 CFU/ML. 02/12/24 10:10 Clean Catch Urine - Final Enterococcus Faecalis Escherichia Coli Esbl Assessment And Plan - Plan Sepsis 2/2 UTI: Urine cx is growing ESBL E. coli and E. faecalis. Will continue iv merrem and zyvox. Will trend lactate. Diarrhea: resolved. Will continue IVF and prn antiemetic. C diff is negative Hx of SLE: Noted. Htn: Will continue home med. Renal stone: s/p lithotripsy and ureteral stent placement. DVT ppx: SCD Code: full Dispo: pending hospital course.
[2024-02-16 07:51] LABS: Absolute Basophils 0.1 K/uL (0-0.5); Absolute Eosinophils 0.5 K/uL (0-0.5); Absolute Lymphocytes (CBC) 1.3 K/uL (0.7-4.9); Absolute Monocytes 1.2 K/uL (0.1-1.3); Absolute Neutrophil 5.8 K/uL (1.8-8.0); Basophils % 1.5 % (0-1.3); Eosinophils % 5.6 % (0-4.4); Hematocrit 35.2 % (36.0-45.0); Hemoglobin 11.6 g/dL (12.0-15.0); Lymphocytes % 14.9 % (15.3-44.8); MCH 29.3 pg (27.0-35.0); MCHC 32.9 g/dL (32.0-36.0); MCV 88.9 fL (80-100); MPV 7.2 fL (7.6-11.3); Monocytes % 12.8 % (3.3-12.3); Neutrophils % 65.2 % (41.7-73.7); Nucleated Red Blood Cells % 0.1 % (0-0); Platelets 423 thou/uL (152-406); RBC Red Blood Cell Count 3.96 M/uL (3.86-4.86); Red Cell Distribution Width 15.6 % (12.1-15.2)
[2024-02-16 08:02] LABS: Anion Gap 6.9 mEq/L (5.0-15.0); Bicarbonate 29 mEq/L (21-32); Glomerular Filtration Rate 115 ml/min (=/>90); Glucose Level 97 mg/dL (74-106); Potassium 2.9 mEq/L (3.5-5.1); Sodium Level 140 mEq/L (136-145)
[2024-02-16 08:04] LABS: BUN Blood Urea Nitrogen < 3 mg/dL (7-18)
--- NOTE | 2024-02-16 14:25 | P.PN ---
Subjective Date of Service: 02/16/24 Chief Complaint: UTI with sepsis Pt is resting comfortably in bed. She is getting iv merrem for UTI. Urine cx is growing ESBL E. coli and E. faecalis. Pt complains of feeling puffy in her hand. Will decrease rate of IVF. No other complaints. Review of Systems General: Unremarkable Eyes: Unremarkable ENT: Unremarkable Respiratory: Unremarkable Cardiovascular: Unremarkable Gastrointestinal: Unremarkable Genitourinary: Unremarkable Musculoskeletal: Unremarkable Integumentary: Unremarkable Neurological: Unremarkable Lymphatics: Unremarkable Physical Examination - Vital Signs Temperature: 98.2 F Blood Pressure: 170/85 Pulse: 85 Respirations: 16 Pulse Ox (%): 99 - Physical Exam General: Alert, In no apparent distress, Oriented x3 HEENT: Atraumatic, Normocephalic, PERRLA Neck: Supple, 2+ carotid pulse no bruit, JVD not distended Respiratory: Clear to auscultation bilaterally, Normal air movement Cardiovascular: No edema, Normal pulses, Regular rate/rhythm, Normal S1 S2 Capillary refill: <2 Seconds Gastrointestinal: Normal bowel sounds, Soft and benign, Non-distended Musculoskeletal: No clubbing, No swelling, No contractures Integumentary: No rashes, No breakdown, No significant lesion Neurological: Normal gait, Normal speech, Normal strength at 5/5 x4 extr Lymphatics: No axilla or inguinal lymphadenopathy Assessment And Plan - Plan Sepsis 2/2 UTI: Urine cx is growing ESBL E. coli and E. faecalis. Will continue iv merrem and IVF at 50 cc/hr. Will trend lactate. Diarrhea: resolved. Will continue IVF, loperamide and prn antiemetic. C diff is negative Hypokalemia: k is 2.9. Will replete and monitor. Hx of SLE: Noted. Htn: Will continue home med. Renal stone: s/p lithotripsy and ureteral stent placement. DVT ppx: SCD Code: full Dispo: pending hospital course.
[2024-02-16] MEDS: NA CHLORIDE 0.9% 1,000 ML IV SCH (17:34)
[2024-02-16] MEDS: POTASSIUM CL 40 MEQ in NA CHLORIDE 0.9% 500 ML IV SCH (17:34)
[2024-02-17 08:43] LABS: Anion Gap 8.4 mEq/L (5.0-15.0); BUN Blood Urea Nitrogen < 3 mg/dL (7-18); Bicarbonate 32 mEq/L (21-32); Glomerular Filtration Rate 110 ml/min (=/>90); Glucose Level 101 mg/dL (74-106); Magnesium 1.4 mg/dL (1.6-2.4); Potassium 3.4 mEq/L (3.5-5.1); Sodium Level 139 mEq/L (136-145)
--- NOTE | 2024-02-17 11:02 | P.PN ---
Subjective Date of Service: 02/17/24 Chief Complaint: UTI with sepsis Pt is resting comfortably in bed. She complains of nausea overnight. Pt is getting iv merrem for UTI. Urine cx is growing ESBL E. coli and E. faecalis. Pt complains of feeling puffy in her hand. Will decrease rate of IVF. No other complaints. Review of Systems General: Unremarkable Eyes: Unremarkable ENT: Unremarkable Respiratory: Unremarkable Cardiovascular: Unremarkable Gastrointestinal: Nausea Genitourinary: Unremarkable Musculoskeletal: Unremarkable Integumentary: Unremarkable Neurological: Unremarkable Lymphatics: Unremarkable Physical Examination - Vital Signs Temperature: 97.4 F Blood Pressure: 158/103 Pulse: 88 Respirations: 20 Pulse Ox (%): 97 - Physical Exam General: Alert, In no apparent distress, Oriented x3 HEENT: Atraumatic, Normocephalic, PERRLA Neck: Supple, 2+ carotid pulse no bruit, JVD not distended Respiratory: Clear to auscultation bilaterally, Normal air movement Cardiovascular: No edema, Normal pulses, Regular rate/rhythm Capillary refill: <2 Seconds Gastrointestinal: Normal bowel sounds, Soft and benign, Non-distended Musculoskeletal: No clubbing, No swelling, No contractures Integumentary: No rashes, No breakdown, No significant lesion Neurological: Normal gait, Normal speech, Normal strength at 5/5 x4 extr Lymphatics: No axilla or inguinal lymphadenopathy Assessment And Plan - Plan Sepsis 2/2 UTI: Urine cx is growing ESBL E. coli and E. faecalis. Will continue iv merrem and IVF at 50 cc/hr. Will trend lactate. Diarrhea: resolved. Will continue IVF, loperamide and prn antiemetic. C diff is negative Hypokalemia: k is 3.4 <- 2.9. Will replete and monitor. Hypomagnesemia: Mag is 1.4. Will replete and monitor. Hx of SLE: Noted. Nausea: prn zofran Htn: Will continue home med. Renal stone: s/p lithotripsy and ureteral stent placement. DVT ppx: SCD Code: full Dispo: pending hospital course.
[2024-02-17] MEDS: POTASSIUM 25 MEQ EFFERV TAB PO ONE (11:03)
[2024-02-17] MEDS: MAGNESIUM SULFATE 1 gm IVPB 1 GM/100 ML BAG IV ONE (11:03)
[2024-02-17 11:30] LABS: Anti-Double Strand DNA Antibod 1 IU/mL (<=4)
[2024-02-17] MEDS: POTASSIUM CL SA 10 MEQ TAB PO ONE (11:55)
[2024-02-17] MEDS: MAGNESIUM 50% 3 GM in NA CHLORIDE 0.9% 100 ML IV ONE (12:00)
[2024-02-17] MEDS: PROPRANOLOL HCL 60 MG SA CAP PO SCH (21:06)
[2024-02-18] MEDS: LOPERAMIDE HCL 2 MG CAPSULE PO PRN (04:05)
[2024-02-18 08:17] LABS: Anion Gap 9.5 mEq/L (5.0-15.0); Bicarbonate 29 mEq/L (21-32); Glomerular Filtration Rate 112 ml/min (=/>90); Glucose Level 107 mg/dL (74-106); Magnesium 2.1 mg/dL (1.6-2.4); Potassium 3.5 mEq/L (3.5-5.1); Sodium Level 138 mEq/L (136-145)
[2024-02-18 08:20] LABS: BUN Blood Urea Nitrogen < 3 mg/dL (7-18)
[2024-02-18] MEDS: FUROSEMIDE 40 MG/4 ML VIAL IV ONE (10:01)
[2024-02-18] MEDS: POTASSIUM CL SA 10 MEQ TAB PO ONE (10:01)
--- NOTE | 2024-02-18 13:23 | P.PN ---
Subjective Date of Service: 02/18/24 Chief Complaint: UTI with sepsis Pt is resting comfortably in bed. She complains of nausea overnight. Will give iv phenergan. Pt is getting iv merrem ( day 4) for UTI. Urine cx is growing ESBL E. coli and E. faecalis. No other complaints. Review of Systems General: Unremarkable Eyes: Unremarkable ENT: Unremarkable Respiratory: Unremarkable Cardiovascular: Unremarkable Gastrointestinal: Nausea, Vomiting Genitourinary: Unremarkable Musculoskeletal: Unremarkable Integumentary: Unremarkable Neurological: Unremarkable Lymphatics: Unremarkable Physical Examination - Vital Signs Temperature: 96.8 F Blood Pressure: 141/71 Pulse: 98 Respirations: 18 Pulse Ox (%): 94 - Physical Exam General: Alert, In no apparent distress, Oriented x3 HEENT: Atraumatic, Normocephalic, PERRLA Neck: Supple, 2+ carotid pulse no bruit Respiratory: Clear to auscultation bilaterally, Normal air movement Cardiovascular: No edema, Normal pulses, Regular rate/rhythm, Normal S1 S2 Capillary refill: <2 Seconds Gastrointestinal: Normal bowel sounds, Soft and benign, Non-distended Musculoskeletal: No clubbing, No swelling, No contractures Integumentary: No rashes, No breakdown, No significant lesion, No tend erness/swelling Neurological: Normal gait, Normal speech, Normal strength at 5/5 x4 extr Lymphatics: No axilla or inguinal lymphadenopathy - Studies Microbiology Data (last 24 hrs): 02/12/24 14:19 Blood - Blood Aerobic Blood Culture - Final No growth in 5 days. 02/12/24 14:19 Blood - Blood Anaerobic Blood Culture - Final No growth in 5 days. 02/12/24 14:19 Blood - Blood Aerobic Blood Culture - Final No growth in 5 days. 02/12/24 14:19 Blood - Blood Anaerobic Blood Culture - Final No growth in 5 days. Assessment And Plan - Plan Sepsis 2/2 UTI: Urine cx is growing ESBL E. coli and E. faecalis. Will continue iv merrem. Off IVF. Will trend lactate. Diarrhea: resolved. Will continue IVF, loperamide and prn antiemetic. C diff is negative Hypokalemia: k is 3.4 <- 2.9. Will replete and monitor. Hypomagnesemia: Mag is 1.4. Will replete and monitor. Hx of SLE: Noted. Nausea: prn iv pphenergan Htn: Will continue home med. Renal stone: s/p lithotripsy and ureteral stent placement. Nutrition: Will start CLD when able to keep food down. Morbid obesity: Pt was advised to lose weight. DVT ppx: SCD Code: full Dispo: pending hospital course.
[2024-02-18] MEDS: PROMETHAZINE INJ 25 MG/ML AMP IV PRN (17:36)
[2024-02-19 08:26] LABS: Anion Gap 7.6 mEq/L (5.0-15.0); Potassium 3.6 mEq/L (3.5-5.1)
[2024-02-19] MEDS: POTASSIUM CL SA 10 MEQ TAB PO ONE (10:46)
--- NOTE | 2024-02-19 11:06 | P.PN ---
Subjective Date of Service: 02/19/24 Chief Complaint: UTI with sepsis Pt is resting comfortably in bed. Nausea improved with iv phenergan. Pt is getting iv merrem (day 5) for UTI. Urine cx is growing ESBL E. coli and E. faecalis. Will place midline for iv abx. No other complaints. Review of Systems General: Unremarkable Eyes: Unremarkable ENT: Unremarkable Respiratory: Unremarkable Cardiovascular: Unremarkable Gastrointestinal: Unremarkable Genitourinary: Unremarkable Musculoskeletal: Unremarkable Integumentary: Unremarkable Neurological: Unremarkable Lymphatics: Unremarkable Physical Examination - Vital Signs Temperature: 96.5 F Blood Pressure: 117/61 Pulse: 86 Respirations: 16 Pulse Ox (%): 90 - Physical Exam General: Alert, In no apparent distress, Oriented x3 HEENT: Atraumatic, Normocephalic, PERRLA Neck: Supple, 2+ carotid pulse no bruit, JVD not distended Respiratory: Clear to auscultation bilaterally, Normal air movement Cardiovascular: No edema, Normal pulses, Regular rate/rhythm, Normal S1 S2 Capillary refill: <2 Seconds Gastrointestinal: Normal bowel sounds, Soft and benign, Non-distended Musculoskeletal: No clubbing, No swelling, No contractures Integumentary: No rashes, No breakdown, No significant lesion Neurological: Normal gait, Normal speech, Normal strength at 5/5 x4 extr Lymphatics: No axilla or inguinal lymphadenopathy Assessment And Plan - Plan Sepsis 2/2 UTI: Urine cx is growing ESBL E. coli and E. faecalis. Will continue iv merrem. Off IVF. Will trend lactate. Diarrhea: resolved. Will continue IVF, loperamide and prn antiemetic. C diff is negative Hypokalemia: k is 3.6<- 3.4 <- 2.9. Will replete and monitor. Hypomagnesemia: Mag is 1.4. Will replete and monitor. Hx of SLE: Noted. Nausea: prn iv phenergan Htn: Will continue home med. Renal stone: s/p lithotripsy and ureteral stent placement. Will talk to her Urologist Nutrition: Will start CLD when able to keep food down. Morbid obesity: Pt was advised to lose weight. DVT ppx: SCD Code: full Dispo: pending hospital course. Will talk to her Urologist.
[2024-02-19] MEDS: HYDROMORPHONE HCL 0.5 MG/0.5 ML INJ IV PRN (12:30)
[2024-02-19] MEDS: FAMOTIDINE 20 MG TAB PO SCH (15:23)
[2024-02-19] MEDS: dexAMETHasone 4 MG TAB PO SCH (16:53)
[2024-02-19] MEDS: PANTOPRAZOLE 40MG TABLET PO SCH (16:53)
[2024-02-19] MEDS: ENSURE MAX PROTEIN 330 ML LIQUID PO SCH (20:34)
[2024-02-19] MEDS: Mupirocin NASAL 2 APPL/1 GM TUBE NAS SCH (20:34)
[2024-02-20] MEDS: FLUCONAZOLE 100 MG TAB PO ONE (08:44)
[2024-02-20 09:51] LABS: Absolute Basophils 0.1 K/uL (0-0.5); Absolute Lymphocytes (CBC) 1.1 K/uL (0.7-4.9); Absolute Monocytes 1.4 K/uL (0.1-1.3); Basophils % 0.8 % (0-1.3); Hematocrit 37.3 % (36.0-45.0); Hemoglobin 11.9 g/dL (12.0-15.0); MCH 28.3 pg (27.0-35.0); MCHC 31.8 g/dL (32.0-36.0); MPV 7.3 fL (7.6-11.3); Monocytes % 16.3 % (3.3-12.3); Neutrophils % 69.9 % (41.7-73.7); Platelets 444 thou/uL (152-406); RBC Red Blood Cell Count 4.19 M/uL (3.86-4.86); Red Cell Distribution Width 16.2 % (12.1-15.2)
[2024-02-20 10:04] LABS: Anion Gap 7.8 mEq/L (5.0-15.0); Potassium 3.8 mEq/L (3.5-5.1)
--- NOTE | 2024-02-20 11:06 | P.PN ---
Subjective Date of Service: 02/20/24 Chief Complaint: UTI with sepsis Pt is resting comfortably in bed. Nausea improved with iv phenergan. Pt is getting iv merrem (day 6) for UTI. Urine cx is growing ESBL E. coli and E. faecalis. Will place midline for iv abx. No other complaints. Review of Systems General: Unremarkable Eyes: Unremarkable ENT: Unremarkable Respiratory: Unremarkable Cardiovascular: Edema Gastrointestinal: Unremarkable Genitourinary: Unremarkable Musculoskeletal: Unremarkable Integumentary: Unremarkable Neurological: Unremarkable Lymphatics: Unremarkable Physical Examination - Vital Signs Temperature: 97.5 F Blood Pressure: 128/87 Pulse: 90 Respirations: 18 Pulse Ox (%): 97 - Physical Exam General: Alert, In no apparent distress, Oriented x3 HEENT: Atraumatic, Normocephalic, PERRLA Neck: Supple, 2+ carotid pulse no bruit, JVD not distended Respiratory: Clear to auscultation bilaterally, Normal air movement Cardiovascular: No edema, Normal pulses, Regular rate/rhythm Capillary refill: <2 Seconds Gastrointestinal: Normal bowel sounds, Soft and benign, Non-distended Musculoskeletal: No clubbing, No swelling, No contractures Integumentary: No rashes, No breakdown, No significant lesion Neurological: Normal gait, Normal speech, Normal strength at 5/5 x4 extr Lymphatics: No axilla or inguinal lymphadenopathy Assessment And Plan - Plan Sepsis 2/2 UTI: Urine cx is growing ESBL E. coli and E. faecalis. Will continue iv merrem (day 6). Off IVF. Will trend lactate. Pt has a port-a-cath in place. Diarrhea: resolved. Will continue IVF, loperamide and prn antiemetic. C diff is negative Hypokalemia: k is 3.8 <- 3.6<- 3.4 <- 2.9. Will replete and monitor. Hypomagnesemia: Mag is 1.4. Will replete and monitor. Hx of SLE: Noted. Nausea: prn iv phenergan Htn: Will continue home med. Renal stone: s/p lithotripsy and ureteral stent placement. Will talk to her Urologist Nutrition: Will start CLD when able to keep food down. Morbid obesity: Pt was advised to lose weight. DVT ppx: SCD Code: full Dispo: pending hospital course. Will talk to her Urologist.
--- NOTE | 2024-02-21 08:05 | P.PN ---
Subjective Date of Service: 02/21/24 Chief Complaint: UTI with sepsis Pt is resting comfortably in bed. Nausea improved with iv phenergan. She had diarrhea overnight. Pt is getting iv merrem (day 7) for UTI. Urine cx is growing ESBL E. coli and E. faecalis. Will place midline for iv abx. No other complaints. Review of Systems General: Unremarkable Eyes: Unremarkable ENT: Unremarkable Respiratory: Unremarkable Cardiovascular: Unremarkable Gastrointestinal: Unremarkable Genitourinary: Unremarkable Musculoskeletal: Unremarkable Integumentary: Unremarkable Neurological: Unremarkable Lymphatics: Unremarkable Physical Examination - Vital Signs Temperature: 97.9 F Blood Pressure: 141/86 Pulse: 80 Respirations: 17 Pulse Ox (%): 98 - Physical Exam General: Alert, In no apparent distress, Oriented x3, Obese HEENT: Atraumatic, Normocephalic, PERRLA Neck: Supple, 2+ carotid pulse no bruit, JVD not distended Respiratory: Clear to auscultation bilaterally, Normal air movement Cardiovascular: No edema, Normal pulses, Regular rate/rhythm Capillary refill: <2 Seconds Gastrointestinal: Normal bowel sounds, Soft and benign, Non-distended Musculoskeletal: No clubbing, No swelling, No contractures Integumentary: No rashes, No breakdown, No significant lesion Neurological: Normal gait, Normal speech, Normal strength at 5/5 x4 extr, Normal tone Lymphatics: No axilla or inguinal lymphadenopathy Assessment And Plan - Plan Sepsis 2/2 UTI: Urine cx is growing ESBL E. coli and E. faecalis. Will continue iv merrem (day 7). Off IVF. Will trend lactate. Pt has a port-a-cath in place. Diarrhea: Will continue IVF, loperamide and prn antiemetic. C diff is negative Hypokalemia: k is 3.8 <- 3.6<- 3.4 <- 2.9. Will replete and monitor. Hypomagnesemia: Mag is 1.4. Will replete and monitor. Hx of SLE: Noted. Nausea: prn iv phenergan Htn: Will continue home med. Renal stone: s/p lithotripsy and ureteral stent placement. Will talk to her Urologist Nutrition: Will start CLD when able to keep food down. Morbid obesity: Pt was advised to lose weight. DVT ppx: SCD Code: full Dispo: pending hospital course. Will talk to her Urologist.
--- NOTE | 2024-02-22 08:32 | P.PN ---
Date of Service: 02/22/24 Subjective Admitted for nausea, UA positive for UTI, ESBL of the urine, and E. faecalis on IV meropenem while inpatient Review of Systems 10-point ROS is otherwise unremarkable Physical Examination - Vital Signs Reviewed - Physical Exam General: Alert, In no apparent distress, Oriented x3 HEENT: Atraumatic, PERRLA, Mucous membr. moist/pink, EOMI, Sclerae nonicteric Neck: Supple, 2+ carotid pulse no bruit, No LAD, Without JVD or thyroid abnormality Respiratory: Clear to auscultation bilaterally, Normal air movement Cardiovascular: Regular rate/rhythm, Normal S1 S2 Gastrointestinal: Normal bowel sounds, Soft and benign, Non-distended, No tenderness Musculoskeletal: No clubbing, No swelling, No tenderness Integumentary: No rashes Neurological: Normal speech, Normal tone, Sensation intact, Cranial nerves 3-12 intact, Normal affect, Abnormal gait, Abnormal strength Lymphatics: No axilla or inguinal lymphadenopathy Assessment & Plan - Problems (Diagnosis) (1) Intractable nausea and vomiting Current Visit: Yes Status: Acute (2) Diarrhea Current Visit: Yes Status: Acute (3) SLE (systemic lupus erythematosus related syndrome) Current Visit: Yes Status: Acute (4) Sepsis secondary to UTI Current Visit: Yes Status: Acute (5) History of lithotripsy Current Visit: Yes Status: Acute (6) S/P ureteral stent placement Current Visit: Yes Status: Acute (7) History of hypertension Current Visit: Yes Status: Acute (8) Lactic acidosis Current Visit: Yes Status: Acute - Plan Plan: 1. Patient with UTI with sepsis and lactic acidosis; continue with IV antibiotics and IV fluids. Await for urine culture results. Monitor white blood cell count. Current white blood cell is greater than 15,000. Heart rate is 110s. Patient meets criteria for sepsis. Cultures pending at this time. Lactic acid is elevated at greater than 3. Patient with lactic acidosis. Aggressive IV hydration IV antibiotic therapy. 2. History of nausea vomiting and diarrhea; continue with antiemetics and stool studies. Risk of C. difficile at this time. C. difficile pending. 3. History of hypertension; continue with antihypertensive 4. Hypokalemia; supplement 5. GI DVT prophylaxis Discharge Plan: Home Plan to discharge in: Greater than 2 days - Advance Directives Does patient have a Living Will: No Does patient have a Durable POA for Healthcare: No - Code Status/Comfort Care Code Status Assessed: Yes Code Status: Full Code Critical Care: Yes Time Spent Managing PTS Care (In Minutes): 35 Discharge planning reports she lives alone in a first floor apartment. <Carrie Dale - Last Filed: 02/23/24 20:28> Chart has been reviewed. Events of the last 24 hours have been noted. Case discussed with FRANCES. I performed a substantial part of the MDM during this patient's care today. I personally made or approved the documented management plan and acknowledge its risk of complications. I agree with the findings and documentation provided in the FRANCES's notes Continue with antibiotic therapy. Continue with antiemetics and IV fluids. Blood pressure control. Anticipate discharge home in the morning. <Jihan Martinez - Last Filed: 03/04/24 00:40>
[2024-02-22 09:12] LABS: Absolute Basophils 0.1 K/uL (0-0.5); Absolute Lymphocytes (CBC) 1.1 K/uL (0.7-4.9); Absolute Monocytes 1.1 K/uL (0.1-1.3); Eosinophils % 0.2 % (0-4.4); Hematocrit 37.8 % (36.0-45.0); Hemoglobin 12.2 g/dL (12.0-15.0); Lymphocytes % 13.1 % (15.3-44.8); MCH 28.5 pg (27.0-35.0); MCHC 32.3 g/dL (32.0-36.0); MCV 88.2 fL (80-100); MPV 6.8 fL (7.6-11.3); Monocytes % 13.3 % (3.3-12.3); Neutrophils % 72.4 % (41.7-73.7); Platelets 467 thou/uL (152-406); RBC Red Blood Cell Count 4.28 M/uL (3.86-4.86); Red Cell Distribution Width 16.4 % (12.1-15.2)
[2024-02-22 09:20] LABS: Anion Gap 3.8 mEq/L (5.0-15.0); Potassium 3.8 mEq/L (3.5-5.1)
[2024-02-22] MEDS: cloNIDine HCL 0.1 MG TAB PO ONE (12:44)
[2024-02-22] MEDS: DIPHENHYDRAMINE 25 MG TAB/CAP PO PRN (14:39)
[2024-02-22] MEDS: PROMETHAZINE 25 MG TABLET PO PRN (14:39)
--- NOTE | 2024-02-23 07:13 | P.DS ---
Admission Date: 02/12/24 Discharge Date: 02/23/24 Reason for Admission: UTI with sepsis Brief History of Present Illness: Patient is a very pleasant 48-year-old female who presents to the emergency room with persistent nausea vomiting and diarrhea. Has been going on for the last 6 days. She is also had an injury to her finger that she wanted evaluated. In the ER she was given IV fluids and she had lab workup which revealed a significant urinary tract infection. Patient had a renal stent placed and a lithotripsy done recently. She has noted to have some dysuria since that time. She is also been on IV antibiotics as well as oral antibiotics. She has a history of systemic lupus erythematous which is affecting multiple organs. Patient is on IgG and oral prednisone. She recently moved here from the [facility]. Patient will be admitted to the hospital for treatment of her UTI with sepsis. - Physical Exam General: Alert, In no apparent distress, Oriented x3 HEENT: Atraumatic, PERRLA, Mucous membr. moist/pink, EOMI, Sclerae nonicteric Neck: Supple, 2+ carotid pulse no bruit, No LAD, Without JVD or thyroid abnormality Respiratory: Clear to auscultation bilaterally, Normal air movement Cardiovascular: Regular rate/rhythm, Normal S1 S2 Gastrointestinal: Normal bowel sounds, Soft and benign, Non-distended, No tenderness Musculoskeletal: No clubbing, No swelling, No tenderness Integumentary: No rashes Neurological: Normal speech, Normal tone, Sensation intact, Cranial nerves 3-12 intact, Normal affect, Abnormal gait, Abnormal strength Lymphatics: No axilla or inguinal lymphadenopathy Hospital Course: 48-year-old female who presents to the emergency room with persistent nausea vomiting and diarrhea. Has been going on for the last 6 days. She is also had an injury to her finger that she wanted evaluated. In the ER she was given IV fluids and she had lab workup which revealed a significant urinary tract infection. Patient had a renal stent placed and a lithotripsy done recently. She has noted to have some dysuria since that time. She Was treated with IV antibiotics inpatient, plan to discharge home on p.o. antibiotics, as needed analgesics, as needed antiemetics. Patient needs to follow-up with PCP in 1 week. Assessment UTI discharged home on Levaquin 500 daily for 10 days Hydrocodone 10 1 p.o. every 6 hours #30 Phenergan 25 1 p.o. every 6 hours as needed nausea vomiting Prior ureteral stent will need to follow-up with Dr. Lam CT abd Right ureteral stent in place without hydronephrosis Hand x-ray FINDINGS: No fracture or dislocation is seen. Continue home medicines as previously prescribed GOAL: Clear understanding of disease process INSTRUCTIONS: Physician Discharge Instructions: -Follow-up with Dr. Lam for ureteral stent -Follow-up with PCP in 1 to 2 weeks -Please call Dr. Martinez at [phone] if any questions regarding hospital stay -Please call nursing station at [phone] if any nursing or medication questions -Return to the emergency room if symptoms worsen Diet: ADA, low sodium Activity: Fall precautions <Carrie Dale - Last Filed: 02/23/24 20:17> Admission Date: 02/12/24 Discharge Date: 02/23/24 - Problems (1) Intractable nausea and vomiting Status: Acute (2) Diarrhea Status: Acute (3) SLE (systemic lupus erythematosus related syndrome) Status: Acute (4) Sepsis secondary to UTI Status: Acute (5) History of lithotripsy Status: Acute (6) S/P ureteral stent placement Status: Acute (7) History of hypertension Status: Acute (8) Lactic acidosis Status: Acute Hospital Course: Chart has been reviewed. Events of the last 24 hours have been noted. Case discussed with FRANCES. I performed a substantial part of the MDM during this patient's care today. I personally made or approved the documented management plan and acknowledge its risk of complications. I agree with the findings and documentation provided in the FRANCES's notes Continue with antibiotic therapy. Continue with antiemetics and IV fluids. Blood pressure control. Anticipate discharge home in the morning. <Jihan Martinez - Last Filed: 03/04/24 00:42> Disposition: ID HOME/HOME HEALTH CARE Discharge Condition: GOOD Vital Signs/Physical Exam: Temp Pulse Resp BP Pulse Ox 97.1 F 79 17 184/93 H 96 02/23/24 04:00 02/23/24 04:00 02/23/24 04:38 02/23/24 04:00 02/23/24 04:38 Laboratory Data at Discharge: WBC 8.40 thou/uL (4.3-10.9) 02/22/24 08:56 Hgb 12.2 g/dL (12.0-15.0) 02/22/24 08:56 Hct 37.8 % (36.0-45.0) 02/22/24 08:56 Plt Count 467 thou/uL (152-406) H 02/22/24 08:56 PT 12.8 SECONDS (9.4-12.5) H 02/12/24 14:19 INR 1.15 02/12/24 14:19 APTT 26.8 SECONDS (24.3-36.9) 02/12/24 14:19 Sodium 143 mEq/L (136-145) 02/22/24 08:56 Potassium 3.8 mEq/L (3.5-5.1) 02/22/24 08:56 BUN 8 mg/dL (7-18) 02/22/24 08:56 Creatinine 0.57 mg/dL (0.55-1.02) 02/22/24 08:56 Glucose 111 mg/dL (74-106) H 02/22/24 08:56 Magnesium 2.0 mg/dL (1.6-2.4) 02/19/24 07:51 Total Bilirubin 0.2 mg/dL (0.2-1.0) 02/14/24 09:21 AST 32 U/L (15-37) 02/14/24 09:21 ALT 30 U/L (13-56) 02/14/24 09:21 Alkaline Phosphatase 94 U/L (45-117) 02/14/24 09:21 Lipase 25 U/L (13-75) 02/12/24 11:04 <Carrie Dale - Last Filed: 02/23/24 20:17> Vital Signs/Physical Exam: Temp Pulse Resp BP Pulse Ox 97 F 90 18 126/82 94 02/23/24 08:00 02/23/24 08:14 02/23/24 08:45 02/23/24 08:14 02/23/24 08:45 Laboratory Data at Discharge: WBC 9.20 thou/uL (4.3-10.9) 02/23/24 08:48 Hgb 11.9 g/dL (12.0-15.0) L 02/23/24 08:48 Hct 38.2 % (36.0-45.0) 02/23/24 08:48 Plt Count 444 thou/uL (152-406) H 02/23/24 08:48 PT 12.8 SECONDS (9.4-12.5) H 02/12/24 14:19 INR 1.15 02/12/24 14:19 APTT 26.8 SECONDS (24.3-36.9) 02/12/24 14:19 Sodium 141 mEq/L (136-145) 02/23/24 08:48 Potassium 3.8 mEq/L (3.5-5.1) 02/23/24 08:48 BUN 10 mg/dL (7-18) 02/23/24 08:48 Creatinine 0.57 mg/dL (0.55-1.02) 02/23/24 08:48 Glucose 126 mg/dL (74-106) H 02/23/24 08:48 Magnesium 2.0 mg/dL (1.6-2.4) 02/19/24 07:51 Total Bilirubin 0.2 mg/dL (0.2-1.0) 02/14/24 09:21 AST 32 U/L (15-37) 02/14/24 09:21 ALT 30 U/L (13-56) 02/14/24 09:21 Alkaline Phosphatase 94 U/L (45-117) 02/14/24 09:21 Lipase 25 U/L (13-75) 02/12/24 11:04 <Jihan Martinez - Last Filed: 03/04/24 00:42> Diet: AHA Activity: Fall precautions Time spent managing pt's care (in minutes): 55 <Carrie Dale - Last Filed: 02/23/24 20:17> <Jihan Martinez - Last Filed: 03/04/24 00:42> Home Medications: Apixaban [Eliquis] 5 mg PO BID 02/13/24 Eletriptan HBr 40 mg PO DAILY PRN 02/13/24 Famotidine 1 tab PO DAILY 02/13/24 Omeprazole [Prilosec] 40 mg PO DAILY 02/13/24 Oxybutynin Chloride [Oxybutynin Chloride ER] 5 mg PO TID PRN 02/13/24 Propranolol [Inderal LA*] 1 tab PO BID 02/13/24 dexAMETHasone [Dexamethasone] 2 mg PO DAILY 02/13/24 Diphenhydramine [Benadryl Tab/Cap] 25 mg PO Q6HP PRN #30 tab 02/22/24 Ensure Max Protein 330 ml PO BID #60 can 02/22/24 Hydrocodone 10/APAP 325 [[place] 10/325] 1 tab PO Q6H PRN #30 tab 02/22/24 Promethazine HCl 25 mg PO Q6H PRN #30 tab 02/22/24 levoFLOXacin [Levaquin] 500 mg PO DAILY #10 tab 02/22/24 predniSONE [Deltasone] 20 mg PO BID #20 tab 02/22/24 New Medications: Diphenhydramine [Benadryl Tab/Cap] 25 mg PO Q6HP PRN #30 tab PRN Reason: Itching Ensure Max Protein 330 ml PO BID #60 can levoFLOXacin [Levaquin] 500 mg PO DAILY #10 tab Hydrocodone 10/APAP 325 [[place] 10/325] 1 tab PO Q6H PRN #30 tab PRN Reason: Pain predniSONE [Deltasone] 20 mg PO BID #20 tab Promethazine HCl 25 mg PO Q6H PRN #30 tab PRN Reason: Nausea / Vomiting Physician Discharge Instructions: -DC IV and DC home -Follow-up with PCP in 1 to 2 weeks Follow-up with Rheumatology in 1 to 2 weeks -Follow-up with Urology in 2 to 4 weeks -Please call Dr. Martinez at [phone] if any questions regarding hospital stay -Please call nursing station at [phone] if any nursing or medication questions -Return to the emergency room if symptoms worsen Followup: OOT,OOT [Primary Care Provider] -
[2024-02-23 08:16] VITALS: BP 126/82
[2024-02-23 08:32] VITALS: TEMP 97; O2SAT 94
[2024-02-23 09:02] LABS: Absolute Basophils 0.1 K/uL (0-0.5); Absolute Lymphocytes (CBC) 1.6 K/uL (0.7-4.9); Absolute Monocytes 1.1 K/uL (0.1-1.3); Absolute Neutrophil 6.4 K/uL (1.8-8.0); Basophils % 1.1 % (0-1.3); Eosinophils % 0.4 % (0-4.4); Hematocrit 38.2 % (36.0-45.0); Hemoglobin 11.9 g/dL (12.0-15.0); Lymphocytes % 17.7 % (15.3-44.8); MCH 27.9 pg (27.0-35.0); MCHC 31.2 g/dL (32.0-36.0); MCV 89.5 fL (80-100); MPV 7.1 fL (7.6-11.3); Monocytes % 11.8 % (3.3-12.3); Platelets 444 thou/uL (152-406); RBC Red Blood Cell Count 4.27 M/uL (3.86-4.86); Red Cell Distribution Width 16.3 % (12.1-15.2)
[2024-02-23 09:20] LABS: Anion Gap 4.8 mEq/L (5.0-15.0); Potassium 3.8 mEq/L (3.5-5.1)
[2024-02-23] MEDS: HEPARIN 500 UNIT/5 ML SYR IV PRN (11:20)
[2024-02-24 05:47] LABS: Anti-Nuclear Antibody Screen Negative (Negative)
[2024-02-24] MEDS ORDERED: levoFLOXacin 750 MG TAB PO SCH (09:00)
== END 2024-02-23 11:50 | disposition home health service (06) | DRG 872 ==
LOC: ER 08:58 → ERHOLD 16:01 → 4TH 16:31
PROVIDERS: ADMIT Hospitalist; ATTEND Hospitalist
DX: A41.51 Sepsis due to Escherichia coli [E. coli] (principal); E87.20 Acidosis, unspecified; K86.1 Other chronic pancreatitis; N39.0 Urinary tract infection, site not specified; Z16.21 Resistance to vancomycin; Z16.12 Extended spectrum beta lactamase (ESBL) resistance; Z68.43 Body mass index [BMI] 50.0-59.9, adult; A41.81 Sepsis due to Enterococcus; R65.20 Severe sepsis without septic shock; E66.01 Morbid (severe) obesity due to excess calories; E87.6 Hypokalemia; I10 Essential (primary) hypertension; E83.42 Hypomagnesemia; M06.9 Rheumatoid arthritis, unspecified; M32.9 Systemic lupus erythematosus, unspecified; Z88.5 Allergy status to narcotic agent; Z88.2 Allergy status to sulfonamides; Z88.8 Allergy status to other drugs, medicaments and biological substances; Z79.01 Long term (current) use of anticoagulants; Z79.52 Long term (current) use of systemic steroids; Z79.899 Other long term (current) drug therapy
CPT/HCPCS: 36415; 74177; 80048; 80053; 81001; 83605; 83690; 83735; 84132; 84145; 85025; 85610; 85730; 86038; 86140; 86225; 87040; 87077; 87086; 87088; 87186; 87324; 93005; 99285; J0696; J1170; J1200; J1642; J1720; J1940; J2020; J2185; J2270; J2405; J2550; J2765; J3475; J3480; J7030; J7040; J8540; Q0169; Q9967

== ENCOUNTER 2024-04-01 12:05 | Emergency (ER) | payer BC, SELFPAY ==
--- NOTE | 2024-04-01 13:52 | RAD REPORT ---
Procedure: Chest Single View History: Chest pain Comparison: none Findings: The lungs appear clear of acute infiltrate. No significant pleural effusion noted. The heart is mildly enlarged. Central venous catheter in place. IMPRESSION: No acute abnormality is displayed.
--- NOTE | 2024-04-01 13:53 | RAD REPORT ---
Exam:Ankle Left 3 View HISTORY: left ankle pain FINDINGS: No acute fracture or dislocation is seen. Post surgical changes involve fluid. Large plantar calcaneal spur
--- NOTE | 2024-04-01 13:54 | RAD REPORT ---
Exam:Knee Left 3 View HISTORY: Left knee pain FINDINGS: No fracture or dislocation seen Mild to moderate osteoarthritis medial compartment
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
[2024-04-01] MEDS ORDERED: LIDOCAINE 4% PATCH ONE ×2 (14:17→14:31)
[2024-04-01] MEDS ORDERED: methocarbamoL 750 MG TAB ONE (14:17)
[2024-04-01] MEDS ORDERED: KETOROLAC 30 MG/ML INJ ONE (14:17)
[2024-04-01] MEDS ORDERED: ACETAMINOPHEN 500 MG TAB ONE (14:17)
[2024-04-01 17:31] VITALS: O2SAT 100
[2024-04-01 17:33] VITALS: BP 152/103; TEMP 98.3
== END 2024-04-01 15:27 | disposition home or self-care (01) ==
LOC: ER 12:05
DX: R07.89 Other chest pain (principal); M25.562 Pain in left knee; M25.572 Pain in left ankle and joints of left foot
CPT/HCPCS: 71045; 96372; 99284; J2001